=== PATIENT | male | born 1950 | race Caucasian/White ===

== ENCOUNTER 2018-03-27 12:23 | Emergency (ER) | payer BC, MEDICARE ==
[2018-03-27 14:03] LABS: BASO % 0.3 % (0-6); GRAN % 64.7 % (47-80); HEMOGLOBIN 14.7 gm/dl (14.0-18.0); LYMPH % 22.6 % (16-45); MEAN CORPUSCULAR HEMOGLOBIN 30.4 pg (27-33); MEAN CORPUSCULAR HGB CONC 32.7 g/dl (32-36); MEAN PLATELET VOLUME 9.1 fl (7.4-10.4); MONO % 9.4 % (0-9); PLATELET COUNT 230 K/uL (130-400); RED BLOOD COUNT 4.84 M/uL (4.40-5.70); WHITE BLOOD COUNT W/O DIFF 6.6 K/uL (4.2-12.2)
--- NOTE | 2018-03-27 14:05 | Emergency Department Record ---
History of Present Illness - General Chief complaint: Eye Problem Stated complaint: REACTION TO NEW MED/BLURRY VISION Time Seen by Provider: 03/27/18 12:43 Source: Patient Mode of Arrival: Ambulatory Limitations: No limitations - History of Present Illness Initial comments: pt has had a maynard for 5 days then went to his dr yesterday and was started on a maynard medication. he then developed double vision, drooping of l side of face and numbness chief complaint: Vision change Onset/Timin -: Days(s) Onset Description: Gradual Location: Left eye Place: Home If Injury: None Eye Symptoms: Other Severity: Moderate Consistency: Constant Associated Symptoms: None Treatments Prior to Arrival: None - Related Data Hx Tetanus Toxoid Vaccination: No Home Medications Medication Instructions Recorded Confirmed Last Taken Alfuzosin HCl [Alfuzosin HCl ER] 10 mg PO DAILY 03/27/18 03/27/18 Unknown Aspirin [Adult Aspirin] 81 mg PO DAILY 03/27/18 03/27/18 Unknown Butalbital/Aspirin/Caffeine 1 each PO Q8H PRN 03/27/18 03/27/18 Unknown [[id number] 50-325-40] Levothyroxine Sodium [Synthroid] 75 mcg PO DAILY 03/27/18 03/27/18 Unknown Lisinopril 30 mg PO DAILY 03/27/18 03/27/18 Unknown Metformin HCl 1,000 mg PO DAILY 03/27/18 03/27/18 Unknown Simvastatin [Zocor] 40 mg PO DAILY 03/27/18 03/27/18 Unknown Sitagliptin Phosphate [Januvia] 100 mg PO DAILY 03/27/18 03/27/18 Unknown Allergies Allergy/AdvReac Type Severity Reaction Status Date / Time No Known Drug Allergies Allergy Verified 03/27/18 12:39 Travel Screening - Travel/Exposure Within Last 30 Days Have you traveled within the last 30 days?: No Past Medical History - SOCIAL HISTORY Smoking Status: Never smoker Family Medical History Any Significant Family History?: No Physical Exam - General General Appearance: Alert, Oriented x3, Cooperative, Mild distress - Head Head exam: Normal inspection - Eye Eye exam: Normal appearance, PERRL, EOMI Pupils: Normal accommodation - ENT ENT exam: Normal exam, Mucous membranes moist, Normal external ear exam, Normal orophraynx Ear exam: Normal external inspection. negative: External canal tenderness Nasal Exam: Normal inspection. negative: Discharge, Sinus tenderness Mouth exam: Normal external inspection, Tongue normal Teeth exam: Normal inspection. negative: Dental caries Throat exam: Normal inspection. negative: Tonsillar erythema, Tonsillar exudate - Neck Neck exam: Normal inspection, Full ROM. negative: Tenderness - Respiratory Respiratory exam: Normal lung sounds bilaterally. negative: Respiratory distress - Cardiovascular Cardiovascular Exam: Regular rate, Normal rhythm, Normal heart sounds - GI/Abdominal GI/Abdominal exam: Soft, Normal bowel sounds. negative: Tenderness - Rectal Rectal exam: Deferred - exam: Deferred - Extremities Extremities exam: Normal inspection, Full ROM, Normal capillary refill. negative: Tenderness - Back Back exam: Reports: Normal inspection, Full ROM. Denies: Muscle spasm, Rash noted, Tenderness - Neurological Neurological exam: Alert, CN II-XII intact, Normal gait, Oriented X3, Other ( droopy l side of face w decreased sensation, double vision which improves when 1 eye is covered) - Psychiatric Psychiatric exam: Normal affect, Normal mood - Skin Skin exam: Dry, Intact, Normal color, Warm Course Vital Signs 03/27/18 12:32 Temperature 97.5 F L Pulse Rate 72 Respiratory 20 Rate Blood Pressure 165/80 Pulse Ox 96 - Reevaluation(s) Reevaluation #1: 03/27/18 15:39 pt still has ptosis and diplopia w a lag in eom and disconjugate gaze Medical Decision Making - Lab Data Result diagrams: 03/27/18 13:54 03/27/18 13:54 Disposition Disposition: Transfer Clinical Impression: Diplopia Stroke Qualifiers: CVA mechanism: unspecified Qualified Code(s): I63.9 - Cerebral infarction, unspecified Ptosis Qualifiers: Laterality: left Qualified Code(s): H02.402 - Unspecified ptosis of left eyelid Disposition: Acute Care Hospital Transfer Transfer To: [facility] Reason For Transfer: stroke like symptoms Accepting Physician: dr mondragon Time Discussed w/Accepting Physician: 16:12 Forms: Patient Portal Access Quality - Quality Measures Quality Measures: N/A - Blood Pressure Screening Does Patient Have Any of the Following: Active Dx of HTN Blood Pressure Classification: Pre-Hypertensive BP Reading Systolic Measurement: 165 Diastolic Measurement: 80 Screening for High Blood Pressure: Patient Exclusion, Hx of HTN [[id number]]
[2018-03-27 14:24] LABS: BLOOD UREA NITROGEN 14 mg/dL (8-23); CREATININE 0.6 mg/dL (0.7-1.2); EST GLOMERULAR FILTRATION RATE > 60 mL/min
[2018-03-27 14:27] LABS: GLUCOSE,RANDOM 97 mg/dL (74-109)
[2018-03-27 14:45] LABS: ERYTHROCYTE SEDIMENTATION RATE 29 mm/hr (0-20)
[2018-03-27] MEDS ORDERED: ASPIRIN 325 MG TABLET PO ONE (16:13)
--- NOTE | 2018-03-28 22:36 | CT SCAN REPORT ---
EXAM: CT SCAN HEAD WO CONTRAST HISTORY: DOUBLE VISION AND HEADACHE. TECHNIQUE: Axial CT scan of the head performed without IV contrast. COMPARISON: None. FINDINGS: No definite acute intracranial hemorrhage identified. No focal mass effect or midline shift apparent. No definite acute infarct or intracranial mass lesion is seen. There is probably a small cyst or polyp in the floor of the right maxillary antrum. IMPRESSION: 1. NO DEFINITE ACUTE INTRACRANIAL HEMORRHAGE OR FOCAL MASS EFFECT IDENTIFIED. 2. SMALL CYST OR POLYP IN THE FLOOR OF THE RIGHT MAXILLARY ANTRUM. JOB NUMBER: [id number] MTDD
== END 2018-03-27 17:35 | disposition short-term general hospital (02) ==
LOC: ER 12:23
DX: I63.9 Cerebral infarction, unspecified (principal); H02.402 Unspecified ptosis of left eyelid; H53.2 Diplopia; R51 Headache; I10 Essential (primary) hypertension
CPT/HCPCS: 70450; 80048; 85025; 85651; 93005; 93010; 99285

== ENCOUNTER 2019-07-08 13:48 | Day surgery (SDC) | payer MEDICARE ==
[2019-07-08] MEDS ORDERED: LIDOCAINE 2% MDV (20MG/ML) 20ML VIAL IV ONE (13:49)
[2019-07-08] MEDS ORDERED: PROPOFOL 10 MG/ML VIAL IV ONE (13:49)
--- NOTE | 2019-07-09 11:21 | Operative Note ---
OPERATION: COLONOSCOPY. PREOPERATIVE DIAGNOSIS: Colon cancer screening average risk. POSTOPERATIVE DIAGNOSIS: Cecal diverticulum, otherwise normal exam. PROCEDURE: After informed consent was obtained from the patient, he was placed in the left lateral decubitus position in the endoscopy suite, sedated and monitored by the department of anesthesia. Digital rectal exam was unremarkable. A well-lubricated [id number] colonoscope was inserted into the rectum and advanced to the cecum. The cecum and cecal bulb were unremarkable as were the ileocecal valve and appendiceal orifice. There was, however, noted to be a cecal diverticulum with retained stool that subsequently with manipulation was expressed from the diverticulum. The remainder of the cecum, ascending colon, transverse colon, descending colon, sigmoid colon, and rectum were unremarkable. No polyps, mass lesions, or inflammation was seen. Forward and J-turn views of the rectum and anorectum were unremarkable. The endoscope was straightened, the rectal ampulla deflated, and the endoscope was removed. RECOMMENDATIONS: I suggest the patient follow a high-fiber diet. He should undergo repeat exam in 10 years or sooner should symptoms warrant. As always, thank you for allowing me to participate in the healthcare of your patients. BALWINDER
== END 2019-07-08 15:00 | disposition home or self-care (01) ==
LOC: HOP 13:48
PROVIDERS: ATTEND Internal Medicine Gastroenterology
DX: Z12.11 Encounter for screening for malignant neoplasm of colon (principal); K57.30 Diverticulosis of large intestine without perforation or abscess without bleeding; E11.9 Type 2 diabetes mellitus without complications; E78.00 Pure hypercholesterolemia, unspecified; I10 Essential (primary) hypertension
CPT/HCPCS: 00812; G0121